=== PATIENT | female | born 1995 | race American Indian/Alaskan Native ===

== ENCOUNTER 2017-02-24 12:31 | Emergency (ER) | payer SELFPAY ==
[2017-02-24 12:44] VITALS: BP 132/86
--- NOTE | 2017-02-24 15:01 | Emergency Department Report ---
ED Female HPI - General Chief complaint: Urogenital-Female Stated complaint: HERP OUTBREAK Source: patient Mode of arrival: Ambulatory Limitations: No Limitations - History of Present Illness Initial comments: 22 y/o F presents requesting an RX for herpes simplex. She states that she was diagnosed 1 year ago and states that acyclovir usually works well for her. Pt reports to being more stressed recently. She admits to tingling and blisters in the gentalia region. She denies any abnormal/unusual vaginal discharge/ odor , fever, or chills at this time. She denies any dysuria, frequency, urgency, nasuea, vomiting, abdominal pain at this time. LMP: 02/14/17, she denies any at this time and denies UPT at this time. NKDA. RODRIGUEZ Complaint: other (no reported vaginal bleeding, discharge, pelvic pain) -: week(s) (2 weeks) Radiation: non-radiating Severity: mild Severity scale (0 -10): 6 Worsens with: none Are you Now?: No - Related Data Previous Rx's Medication Instructions Recorded Last Taken Type Acyclovir [Zovirax] 400 mg PO TID #15 tablet 02/24/17 Unknown Rx Allergies Allergy/AdvReac Type Severity Reaction Status Date / Time No Known Allergies Allergy Verified 02/24/17 12:46 ED Review of Systems ROS: Stated complaint: HERP OUTBREAK Other details as noted in HPI Constitutional: denies: chills, fever Eyes: denies: eye pain, eye discharge, vision change ENT: denies: ear pain, throat pain Respiratory: denies: cough, shortness of breath, wheezing Cardiovascular: denies: chest pain, palpitations Gastrointestinal: denies: abdominal pain, nausea, diarrhea Genitourinary: other (blisters of the gentalia region, tingling) Musculoskeletal: denies: back pain, joint swelling, arthralgia Skin: other (blisters) Neurological: denies: headache, weakness, paresthesias Psychiatric: denies: anxiety, depression ED Past Medical Hx - Past Medical History Previous Medical History?: No - Surgical History Past Surgical History?: Yes Additional Surgical History: uterine - Social History Smoking Status: Never Smoker Substance Use Type: None - Medications Home Medications: Home Medications Medication Instructions Recorded Confirmed Last Taken Type Acyclovir [Zovirax] 400 mg PO TID #15 tablet 02/24/17 Unknown Rx ED Physical Exam - General Limitations: No Limitations General appearance: alert, in no apparent distress - Head Head exam: Present: atraumatic, normocephalic - Eye Eye exam: Present: normal appearance - Neck Neck exam: Present: normal inspection - Respiratory Respiratory exam: Present: normal lung sounds bilaterally. Absent: respiratory distress - Cardiovascular Cardiovascular Exam: Present: regular rate, normal rhythm. Absent: systolic murmur, diastolic murmur, rubs, gallop - GI/Abdominal GI/Abdominal exam: Present: soft, normal bowel sounds, other (no CVAT, suprapubic pain, or low back pain) - External exam: Present: other (there was cerivcal discharge noted on the external genatlia, white in color, there was also a group of blisters that were TTP at the gentalia region) - Back Exam Back exam: Present: normal inspection - Neurological Exam Neurological exam: Present: alert, oriented X3, normal gait - Psychiatric Psychiatric exam: Present: normal affect, normal mood - Skin Skin exam: Present: other (blisters in the genatlia region) ED Course Vital Signs 02/24/17 12:43 Temperature 98.6 F Pulse Rate 65 Respiratory 16 Rate Blood Pressure 132/86 O2 Sat by Pulse 99 Oximetry ED Medical Decision Making - Medical Decision Making Pt's LMP was 02/14/17, she denies any chance of and denies UPT at this time. Known hx of herpes gentalias for the past 1 year. 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 Pt denied any further work-up at this time. Pt was discharged him with acyclovir with referrals to OBGYN. Pt was discharged in stable condition, no resp distress, she was alert and oriented, hemodynmacally and neurovascularly intact. Critical care attestation.: If time is entered above; I have spent that time in minutes in the direct care of this critically ill patient, excluding procedure time. ED Disposition Clinical Impression: Herpes genitalia Qualifiers: Herpes simplex infection site: unspecified Qualified Code(s): A60.00 - Herpesviral infection of urogenital system, unspecified Disposition: - TO HOME OR SELFCARE Is pt being admited?: No Does the pt Need Aspirin: No Condition: Stable Instructions: Acyclovir (By mouth), Genital Herpes Simplex (ED) Additional Instructions: Please take the anti-viral as directed to you. Please follow-up with OBGYN within 3-5 days and go to your PCP within 1 week for follow-up. Please return to the ER immediately with any acute worsening of your symptoms. Prescriptions: Acyclovir [Zovirax] 400 mg PO TID #15 tablet Referrals: [facility] [Outside] - 3-5 Days [facility] [Outside] - 3-5 Days GIAN GARCIA MD [Staff Physician] - 3-5 Days [facility], [Primary Care Provider] - 3-5 Days Forms: Work/School Release Form(ED)
== END 2017-02-24 15:17 | disposition home or self-care (01) ==
LOC: ED 12:31
DX: A60.00 Herpesviral infection of urogenital system, unspecified (principal)

== ENCOUNTER 2017-11-30 05:09 | Emergency (ER) | payer SELFPAY ==
[2017-11-30 05:21] VITALS: BP 118/87
--- NOTE | 2017-11-30 07:48 | Emergency Department Report ---
ED Female HPI - General Stated complaint: VAG DISCOMFORMT Time Seen by Provider: 11/30/17 07:31 Source: patient Mode of arrival: Ambulatory Limitations: No Limitations - History of Present Illness Initial comments: 22-year-old female presents to the ED complaining of blisters on her vagina consistent with her history of genital herpes. States this outbreak began 2 days ago. Patient denies fever chills nausea or vomiting. Patient denies dysuria. Is awake alert and oriented 3. Last menstrual period 11/16/17. MD Complaint: other Onset/Timin -: days(s) Location: labia Quality: burning Consistency: constant Worsens with: none Are you Now?: No Last Menstrual Period: 11/16/17 EDC: 08/23/18 Associated Symptoms: rash - Related Data Sexually active: Yes Previous Rx's Medication Instructions Recorded Last Taken Type Acyclovir [Zovirax] 400 mg PO TID #15 tablet 02/24/17 Unknown Rx Acyclovir [Zovirax Cap] 200 mg PO Q4H #25 capsule 11/30/17 Unknown Rx Ibuprofen [Motrin] 600 mg PO Q8H PRN #15 tablet 11/30/17 Unknown Rx Allergies Allergy/AdvReac Type Severity Reaction Status Date / Time No Known Allergies Allergy Verified 02/24/17 12:46 ED Review of Systems ROS: Stated complaint: VAG DISCOMFORMT Other details as noted in HPI Constitutional: denies: chills, fever Eyes: denies: eye pain, eye discharge, vision change ENT: denies: ear pain, throat pain Respiratory: denies: cough, shortness of breath, wheezing Cardiovascular: denies: chest pain, palpitations Endocrine: no symptoms reported Gastrointestinal: denies: abdominal pain, nausea, diarrhea Genitourinary: as per HPI. denies: urgency, dysuria, discharge Musculoskeletal: denies: back pain, joint swelling, arthralgia Skin: as per HPI. denies: rash, lesions Neurological: denies: headache, weakness, paresthesias Psychiatric: denies: anxiety, depression Hematological/Lymphatic: denies: easy bleeding, easy bruising ED Past Medical Hx - Past Medical History Additional medical history: GENITAL HERPES - Surgical History Additional Surgical History: MOLAR - Social History Smoking Status: Never Smoker Substance Use Type: None - Medications Home Medications: Home Medications Medication Instructions Recorded Confirmed Last Taken Type Acyclovir [Zovirax] 400 mg PO TID #15 tablet 02/24/17 Unknown Rx Acyclovir [Zovirax Cap] 200 mg PO Q4H #25 capsule 11/30/17 Unknown Rx Ibuprofen [Motrin] 600 mg PO Q8H PRN #15 tablet 11/30/17 Unknown Rx ED Physical Exam - General Limitations: No Limitations General appearance: alert, in no apparent distress - Head Head exam: Present: atraumatic, normocephalic - Eye Eye exam: Present: normal appearance - ENT ENT exam: Present: mucous membranes moist - Neck Neck exam: Present: normal inspection - Respiratory Respiratory exam: Present: normal lung sounds bilaterally. Absent: respiratory distress - Cardiovascular Cardiovascular Exam: Present: regular rate, normal rhythm. Absent: systolic murmur, diastolic murmur, rubs, gallop - GI/Abdominal GI/Abdominal exam: Present: soft, normal bowel sounds - External exam: Present: lesions (small vesicles on vaginal labia) - Extremities Exam Extremities exam: Present: normal inspection - Back Exam Back exam: Present: normal inspection - Neurological Exam Neurological exam: Present: alert, oriented X3 - Psychiatric Psychiatric exam: Present: normal affect, normal mood - Skin Skin exam: Present: warm, dry, intact, normal color. Absent: rash ED Course Vital Signs 11/30/17 05:16 Temperature 98 F Pulse Rate 79 Respiratory 16 Rate Blood Pressure 118/87 O2 Sat by Pulse 100 Oximetry ED Medical Decision Making - Medical Decision Making A/P: Herpes outbreak 1-acyclovir course 2-follow-up with primary care and [facility] 3-Motrin when necessary Critical care attestation.: If time is entered above; I have spent that time in minutes in the direct care of this critically ill patient, excluding procedure time. ED Disposition Clinical Impression: Genital herpes Qualifiers: Herpes simplex infection site: vulvovaginitis Qualified Code(s): A60.04 - Herpesviral vulvovaginitis Disposition: TO HOME OR SELFCARE Is pt being admited?: No Does the pt Need Aspirin: No Condition: Stable Instructions: Genital Herpes Simplex (ED), Acyclovir (By mouth) Prescriptions: Acyclovir [Zovirax Cap] 200 mg PO Q4H #25 capsule Ibuprofen [Motrin] 600 mg PO Q8H PRN #15 tablet PRN Reason: Pain Referrals: [facility] [Provider Group] - 3-5 Days [facility] [Provider Group] - 3-5 Days Forms: Work/School Release Form(ED) Time of Disposition: 07:49
== END 2017-11-30 07:58 | disposition home or self-care (01) ==
LOC: ED 05:09
DX: A60.04 Herpesviral vulvovaginitis (principal)
CPT/HCPCS: 99282